=== PATIENT | female | born 1930 | race Caucasian/White ===

== ENCOUNTER → 2016-08-29 | Outpatient (CLI) | payer MEDICARE, BC ==
[~2016-08-29] MED LIST: BAYER CHEWABLE81 MG PO; CENTRUM CHEWAB1 EACH PO; FOLIC ACID1 MG PO; HYDREA CAP 500500 MG PO; ISOSORBIDE MONO30 MG PO; METOPROLOL TART50 MG PO; MIRAPEX0.125 MG PO; TYLENOL EXTRA500 MG PO; ZYLOPRIM 100 M100 MG PO; ZYRTEC10 M3 PO
== END ==
LOC: MRI 13:00
DX: M51.36 Other intervertebral disc degeneration, lumbar region (principal); I73.9 Peripheral vascular disease, unspecified; M51.87 Other intervertebral disc disorders, lumbosacral region; M99.76 Connective tissue and disc stenosis of intervertebral foramina of lower extremity
CPT/HCPCS: 72148; 93925

== ENCOUNTER 2020-08-13 19:06 | Emergency (ER) | payer MEDICARE ==
[~2020-08-13 19:06] MED LIST changes: +AUGMENTIN 875-1 EACH PO; +BUDESONIDE0.25 MG/2 INH; +CARVEDILOL3.125 MG PO; +IPRAT-ALBUT 0.5-3 ML INH; +LEVAQUIN500 MG PO; +MELATONIN5 M5 PO; +NORCO 5-325 TA1 EACH PO; +PROTONIX 40 MG40 M1 PO; +REMERON15 M1 PO; +SYNTHROID50 MCG PO; +TYLENOL 500 MG500 MG PO; +ZANAFLEX4 M1 PO; +ZITHROMAX250 MG PO; +ZOFRAN4 MG PO
== END 2020-08-13 21:55 | disposition home or self-care (01) ==
LOC: ER1 19:06
DX: S01.01XA Laceration without foreign body of scalp, initial encounter (principal); S16.1XXA Strain of muscle, fascia and tendon at neck level, initial encounter; S51.011A Laceration without foreign body of right elbow, initial encounter; I10 Essential (primary) hypertension; Z85.3 Personal history of malignant neoplasm of breast; W01.0XXA Fall on same level from slipping, tripping and stumbling without subsequent striking against object, initial encounter; Y92.002 Bathroom of unspecified non-institutional (private) residence as the place of occurrence of the external cause; Z23 Encounter for immunization
CPT/HCPCS: 12001; 70450; 72125; 90471; 90715; 99283

== ENCOUNTER → 2020-09-01 | Outpatient (CLI) | payer MEDICARE | LOC: KOH-I 12:52 | DX: M54.9 Dorsalgia, unspecified (principal); M47.816 Spondylosis without myelopathy or radiculopathy, lumbar region; M53.86 Other specified dorsopathies, lumbar region | CPT/HCPCS: 72148 ==

== ENCOUNTER 2021-02-06 05:52 | Inpatient (IN) | payer MEDICARE ==
[~2021-02-06] VITALS: Ht 160 cm; Wt 59.0 kg
[~2021-02-06 05:52] MED LIST changes: -SYNTHROID50 MCG PO; -ZANAFLEX4 M1 PO
[2021-02-06 06:39] LABS: RED BLOOD COUNT 3.85 M/UL (4.00-5.10); WHITE BLOOD COUNT 5.3 K/UL (4.5-11.0)
[2021-02-06] MEDS ORDERED: SYNTHROID88 MCG PO (08:32)
[2021-02-06] MEDS ORDERED: ZANAFLEX4 M1 PO (08:34)
[2021-02-06] MEDS ORDERED: HYDROCODON-ACE1 EAC4 PO (10:37)
[2021-02-06] MEDS ORDERED: HYDROXYUREA500 MG PO (10:38)
[2021-02-06] MEDS ORDERED: ROPINIROLE HCL2 MG PO (10:38)
[2021-02-06] MEDS ORDERED: TIZANIDINE HCL4 MG PO (10:39)
[2021-02-06] MEDS ORDERED: PREDNISOLONE ACE5 ML EYELF (10:40)
[2021-02-06] MEDS ORDERED: MELATONIN10 MG PO (10:41)
[2021-02-06] MEDS ORDERED: ASPIRIN81 MG PO (10:41)
[2021-02-06] MEDS ORDERED: TYLENOL 8 HOUR650 MG PO (10:41)
[2021-02-07 03:59] LABS: HEMOGLOBIN 9.7 gm/dl (12.3-15.3); RED BLOOD COUNT 3.2 M/UL (4.00-5.10); WHITE BLOOD COUNT 12.7 K/UL (4.5-11.0)
[2021-02-08 04:50] LABS: HEMOGLOBIN 9.9 gm/dl (12.3-15.3); RED BLOOD COUNT 3.2 M/UL (4.00-5.10)
[2021-02-08 04:53] LABS: WHITE BLOOD COUNT 9.4 K/UL (4.5-11.0)
[2021-02-08] MEDS ORDERED: AUGMENTIN 875-1 EACH PO (12:29)
== END 2021-02-08 15:15 | disposition home or self-care (01) | DRG 871 ==
LOC: ER1 05:52 → CDU 09:05 → M/S 16:02
PROVIDERS: Emergency Medicine; Physician Assistant; ADMIT Internal Medicine Infectious Disease
DX: A41.89 Other specified sepsis (principal); J96.21 Acute and chronic respiratory failure with hypoxia; J15.0 Pneumonia due to Klebsiella pneumoniae; N17.9 Acute kidney failure, unspecified; E87.2 Acidosis; Z20.822 Contact with and (suspected) exposure to COVID-19; I12.9 Hypertensive chronic kidney disease with stage 1 through stage 4 chronic kidney disease, or unspecified chronic kidney disease; N18.9 Chronic kidney disease, unspecified; G25.81 Restless legs syndrome; M19.90 Unspecified osteoarthritis, unspecified site; J44.9 Chronic obstructive pulmonary disease, unspecified; E03.9 Hypothyroidism, unspecified; R65.20 Severe sepsis without septic shock; Z85.21 Personal history of malignant neoplasm of larynx; Z79.82 Long term (current) use of aspirin; Z90.710 Acquired absence of both cervix and uterus; Z90.49 Acquired absence of other specified parts of digestive tract; Z82.49 Family history of ischemic heart disease and other diseases of the circulatory system; Z93.0 Tracheostomy status
CPT/HCPCS: 36415; 71045; 71046; 80053; 81001; 82550; 82553; 83605; 83690; 83735; 83874; 83880; 84100; 84443; 84484; 85025; 85610; 85730; 87040; 87070; 87077; 87086; 87186; 87205; 93005; 94640; 94664; 94760; 96365; 96366; 96375; 97161; 97165; 99285; J0456; J0696; J1650; J2543; J7030; Q9965; U0002

== ENCOUNTER 2021-11-27 07:37 | Inpatient (IN) | payer MEDICARE ==
[~2021-11-27] VITALS: Ht 160 cm; Wt 56.7 kg
[~2021-11-27 07:37] MED LIST changes: +ASPIRIN81 MG PO; +HYDROCODON-ACE1 EAC4 PO; +HYDROXYUREA500 MG PO; +MELATONIN10 MG PO; +PREDNISOLONE ACE5 ML EYELF; +ROPINIROLE HCL2 MG PO; +SYNTHROID100 MCG PO; +TIZANIDINE HCL6 MG PO; +TYLENOL 8 HOUR650 MG PO; +ZANAFLEX4 M1 PO
[2021-11-27 08:12] LABS: HEMOGLOBIN 10.6 gm/dl (12.3-15.3); RED BLOOD COUNT 3.14 M/UL (4.00-5.10); WHITE BLOOD COUNT 4.3 K/UL (4.5-11.0)
[2021-11-27] MEDS ORDERED: FAMOTIDINE20 MG PO (12:18)
[2021-11-28 05:21] LABS: HEMOGLOBIN 10.2 gm/dl (12.3-15.3); RED BLOOD COUNT 3.02 M/UL (4.00-5.10)
[2021-11-28 05:26] LABS: WHITE BLOOD COUNT 9.9 K/UL (4.5-11.0)
[2021-11-29 03:17] LABS: HEMOGLOBIN 9.8 gm/dl (12.3-15.3); RED BLOOD COUNT 2.88 M/UL (4.00-5.10)
[2021-11-30 03:08] LABS: HEMOGLOBIN 9.3 gm/dl (12.3-15.3); RED BLOOD COUNT 2.68 M/UL (4.00-5.10); WHITE BLOOD COUNT 5.8 K/UL (4.5-11.0)
[2021-11-30] MEDS ORDERED: AMOX TR-K CLV1 EAC4 PO (09:39)
[2021-11-30] MEDS ORDERED: HYDROXYUREA500 MG PO (09:42)
== END 2021-11-30 11:56 | disposition home or self-care (01) | DRG 205 ==
LOC: ER1 07:37 → CDU 08:57 → MED SURG 4 19:36
PROVIDERS: Family Medicine; Physician Assistant; Registered Nurse; ADMIT Internal Medicine Infectious Disease
DX: J95.03 Malfunction of tracheostomy stoma (principal); A41.9 Sepsis, unspecified organism; J69.0 Pneumonitis due to inhalation of food and vomit; J96.01 Acute respiratory failure with hypoxia; Z20.822 Contact with and (suspected) exposure to COVID-19; N17.9 Acute kidney failure, unspecified; D72.819 Decreased white blood cell count, unspecified; D69.6 Thrombocytopenia, unspecified; D53.9 Nutritional anemia, unspecified; J44.9 Chronic obstructive pulmonary disease, unspecified; G25.81 Restless legs syndrome; E03.9 Hypothyroidism, unspecified; I12.9 Hypertensive chronic kidney disease with stage 1 through stage 4 chronic kidney disease, or unspecified chronic kidney disease; E11.22 Type 2 diabetes mellitus with diabetic chronic kidney disease; Z96.698 Presence of other orthopedic joint implants; E86.0 Dehydration; Y83.8 Other surgical procedures as the cause of abnormal reaction of the patient, or of later complication, without mention of misadventure at the time of the procedure; N18.30 Chronic kidney disease, stage 3 unspecified; Z85.9 Personal history of malignant neoplasm, unspecified; Z85.21 Personal history of malignant neoplasm of larynx; Z90.49 Acquired absence of other specified parts of digestive tract; Z90.710 Acquired absence of both cervix and uterus; Z87.891 Personal history of nicotine dependence; Z82.49 Family history of ischemic heart disease and other diseases of the circulatory system; Z79.4 Long term (current) use of insulin
CPT/HCPCS: 0240U; 36415; 36600; 71045; 80048; 80053; 80202; 81001; 82550; 82553; 82607; 82746; 82803; 83605; 83735; 83880; 84100; 84484; 85025; 85379; 85610; 87040; 87070; 87077; 87086; 87186; 87205; 92526; 92610; 93005; 94640; 94664; 94760; 96361; 96374; 96375; 96376; 99285; J0692; J1335; J2270; J2543; J3370; J7070

== ENCOUNTER → 2021-12-19 | Outpatient (CLI) | payer MEDICARE ==
[~2021-12-19] MED LIST changes: +AMOX TR-K CLV1 EAC4 PO; +FAMOTIDINE20 MG PO
== END ==
LOC: MRI 07:37
DX: R51.9 Headache, unspecified (principal)
CPT/HCPCS: 70551